=== PATIENT | female | born 1950 | race Caucasian/White ===

== ENCOUNTER 2018-11-23 12:53 | Day surgery (SDC) | payer MEDICARE, OTHER ==
[~2018-11-23] VITALS: Ht 177.8 cm; Wt 75.3 kg
[~2018-11-23 12:53] MED LIST: ACID CONTROL150 MG PO; ALPRAZOLAM0.5 MG; AMLODIPINE BESY10 MG PO; LEVOTHYROXINE75 MCG PO; LEXAPRO20 MG PO; LOMOTIL TABLET1 EACH PO; LOVASTATIN20 MG PO; ONDANSETRON ODT4 MG SL; POTASSIUM CHLO10 ME1 PO; PREMARIN42.5 GM VAGINAL; SPIRONOLACTONE1 EACH PO; VOLTAREN100 GM TOP
[2018-11-23] MEDS ORDERED: NORCO 5-325 TA1 EACH PO (13:17)
--- NOTE | 2018-11-23 14:09 | NUR ---
11/23/18 1409 Lilian Bo 1405-PATIENT ARRIVED TO PACU ON 2L NC. PATIENT AWAKE DROWSY RR EVEN. DENIES PAIN OR NAUSEA. ABDOMEN SOFT. LAYING LEFT LATERAL. VERY DROWSY DOZES BACK TO SLEEP.
--- NOTE | 2018-11-24 21:11 | OR ---
[facility] [address] [place], [place] [address] Signed DATE OF OPERATION: 11/23/2018 SURGEON: Michael Gaona MD PREOPERATIVE DIAGNOSES: 1. Longstanding reflux symptoms worsening recently. 2. History of endolymphatic hydrops causing Meniere disease. POSTOPERATIVE DIAGNOSIS: Poor flap valve and mild distal esophagitis without Nelson epithelium or stricture. PROCEDURE PERFORMED: Esophagogastroduodenoscopy with biopsy. ANESTHESIA: Intravenous sedation, fentanyl 100 mcg, Versed 3 mg. 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 She is a patient of Dr. Madelyn Gomez. She has had longstanding reflux disease for which she has used Zantac generally with good effect, but in the preceding several months noting increased symptoms in her esophagus, feeling to be "on fire." She self prescribed Prilosec, which she did take for 14 days per manufacture's instructions and would discontinue. Prilosec was quite helpful to her. She has had no associated hematemesis or dysphagia. She does have family history of polyps of the colon in her mother, but no family history of esophageal or stomach cancer. She underwent knee replacement in September in [place], [place], and has been given preoperative antibiotic Ancef. Anticipated an upper endoscopy at this time. She understands the risk of bleeding, infection, and perforation related to upper endoscopy and wished to proceed with it. FINDINGS: There was some bile within the stomach, but not associated with actual gastritis or ulceration. The distal esophagus was mildly inflamed and there was a poor flap valve consistent with small hiatal hernia. Duodenum was normal. CLOtest was negative. DESCRIPTION OF PROCEDURE: The patient was brought to the endoscopy suite and placed in lateral decubitus position after undergoing topical Hurricaine spray hypopharyngeal anesthesia. A bite block was Electronically Signed By: MICHAEL GAONA MD 11/24/18 2111 PATIENT NAME: BECKY MURRAY OPERATIVE REPORT DATE OF : 54 REPORT #: [id number] PHYSICIAN: MICHAEL GAONA MD PCP: MADELYN GOMEZ MD REPORT IS CONFIDENTIAL AND NOT TO BE RELEASED WITHOUT AUTHORIZATION [facility] [address] [place], [place] [address] Signed placed after intravenous sedation induced with full cardiopulmonary monitoring. The Olympus video upper endoscope was passed in the hypopharynx. The vocal cords appeared normal. Scope was advanced into the esophagus. Esophagus throughout its length was normal. Entry into the stomach showed some residual thin fluid bile. No sign of obvious gastritis. Rugal folds appeared normal. The antrum was reasonably normal as was the pylorus. The scope was passed through the pylorus into the duodenum allowing for biopsies there. The scope was then withdrawn to the antrum, where biopsies were taken for both LENY and pathologic testing. Retroflexed view was undertaken showing a poor flap valve consistent with small hiatal hernia. The scope was straightened, withdrawn, and biopsies taken of the distal esophageal mucosa and ultimately the mid esophageal mucosa as well. The scope was withdrawn and removed and the patient was taken to recovery room in good condition. CONCLUDING DIAGNOSIS: Small hiatal hernia and poor flap valve with low-grade distal esophagitis. No evidence of Nelson epithelium, stricture, or neoplasm. Stomach normal except some bile within initially. PLAN: For now, recommend continued use of Prilosec 20 mg p.o. daily. She will return to see me in the office in 4 to 6 weeks for followup. MD BRODY Chavez/MARTINE /[id number] cc: Dr. Madelyn Gomez Copies: ~ Electronically Signed By: MICHAEL GAONA MD 11/24/18 211 PATIENT NAME: BECKY MURRAY OPERATIVE REPORT DATE OF : 54 REPORT #: [id number] PHYSICIAN: MICHAEL GAONA MD PCP: MADELYN GOMEZ MD REPORT IS CONFIDENTIAL AND NOT TO BE RELEASED WITHOUT AUTHORIZATION
== END 2018-11-23 15:05 | disposition home or self-care (01) ==
LOC: DS 12:53 → OPS 12:53 → DS 14:00 → OPS 14:00
PROVIDERS: Surgery
PROC: 0DB78ZX Excision of Stomach, Pylorus, Via Natural or Artificial Opening Endoscopic, Diagnostic (ICD-10-PCS; 2018-11-23)
PROC: 0DB38ZX Excision of Lower Esophagus, Via Natural or Artificial Opening Endoscopic, Diagnostic (ICD-10-PCS; 2018-11-23)
PROC: 0DB28ZX Excision of Middle Esophagus, Via Natural or Artificial Opening Endoscopic, Diagnostic (ICD-10-PCS; 2018-11-23)
PROC: 0DB98ZX Excision of Duodenum, Via Natural or Artificial Opening Endoscopic, Diagnostic (ICD-10-PCS; principal; 2018-11-23 14:00)
DX: K21.0 Gastro-esophageal reflux disease with esophagitis (principal); K44.9 Diaphragmatic hernia without obstruction or gangrene; E03.9 Hypothyroidism, unspecified; G47.33 Obstructive sleep apnea (adult) (pediatric); K59.09 Other constipation; F32.9 Major depressive disorder, single episode, unspecified; R42 Dizziness and giddiness
CPT/HCPCS: G0500; J0690; J2250; J3010; J7120